=== PATIENT | female | born 1970 | race Caucasian/White ===

== ENCOUNTER 2019-07-04 20:13 | Emergency (ER) | payer BC, OTHER ==
[2019-07-04 20:42] LABS: #Basophils 0.1 thou/uL (0.0-0.2); #Eosinphils 0.1 thou/uL (0.0-0.7); #Lymphocytes 1.3 thou/uL (1.20-3.40); #Monocytes 0.5 thou/uL (0.11-0.59); %Basophils 0.5 % (0.0-1.0); %Eosinophils 0.8 % (0.0-10.0); %Lymphocytes 9.4 % (21.0-51.0); %Monocytes 3.7 % (0.0-10.0); %Neutrophils 85.6 % (42.0-75.0); Hemoglobin 14.3 g/dL (12.0-16.0); Mean Corpuscular HGB CONC 32.5 g/dL (32.0-36.0); Mean Corpuscular Hemoglobin 28.8 pg (27.0-31.0); Mean Corpuscular Volume 88.5 fL (78.0-98.0); Mean Platelet Volume 8.3 fL (7.4-10.4); Platelet Count 237 thou/uL (130-400); RBC Distribution Width 12.9 % (11.5-14.5); Red Blood Cell (RBC) Count 4.96 mill/uL (4.20-5.40)
[2019-07-04 21:01] LABS: ALT (SGPT) 17 U/L (8-55); AST (SGOT) 17 U/L (5-34); Albumin 4.3 g/dL (3.5-5.0); Alkaline Phosphatase 52 U/L (40-110); Anion Gap 12 mmol/L (10-20); BUN (Urea Nitrogen) 11 mg/dL (7.0-18.7); Bilirubin, Total 0.6 mg/dL (0.2-1.2); Calc. Creatinine Clearance 0 mL/min (70-130); Carbon Dioxide 25 mmol/L (22-29); Chloride 103 mmol/L (98-107); Estimated GFR-MDRD 75; Globulin 3.1 g/dL (2.4-3.5); Glucose 112 mg/dL (70-105); Potassium 3.3 mmol/L (3.5-5.1); Protein, Total 7.4 g/dL (6.0-8.3); Sodium 137 mmol/L (136-145)
--- NOTE | 2019-07-04 21:01 | RAD ---
PORTABLE CHEST ONE VIEW: 07/04/19 at 8:43 p.m. HISTORY: Chest pain. FINDINGS: The heart size is normal. The lungs are well expanded without lobar consolidation, pneumothoraces, or pleural effusions. IMPRESSION: No acute process. POS: [id number]
[2019-07-04] MEDS ORDERED: Aspirin Chewable 81 MG TAB ONE (22:00)
[2019-07-05 11:57] LABS: SARS-CoV-2 MS2 Positive; SARS-CoV-2 N Gene Negative; SARS-CoV-2 S Gene Negative; SARS-CoV-2 orf1ab Negative
== END 2019-07-04 22:24 | disposition home or self-care (01) ==
LOC: ERS 20:13
DX: R07.89 Other chest pain (principal); Z20.828 Contact with and (suspected) exposure to other viral communicable diseases; I10 Essential (primary) hypertension; K21.9 Gastro-esophageal reflux disease without esophagitis; F41.9 Anxiety disorder, unspecified; F32.9 Major depressive disorder, single episode, unspecified; Z79.01 Long term (current) use of anticoagulants; Z79.899 Other long term (current) drug therapy
CPT/HCPCS: 36415; 71045; 80053; 83880; 84484; 85025; 87635; 93005; U0003

== ENCOUNTER 2021-11-06 19:34 | Inpatient (IN) | payer BC, OTHER ==
[2021-11-06 21:59] LABS: #Eosinphils 0.2 thou/uL (0.0-0.7); #Lymphocytes 3.2 thou/uL (1.20-3.40); #Monocytes 0.4 thou/uL (0.11-0.59); #Neutrophils 4.4 thou/uL (1.40-6.50); %Basophils 0.5 % (0.0-1.0); %Eosinophils 2.3 % (0.0-10.0); %Lymphocytes 39.3 % (21.0-51.0); %Monocytes 5.3 % (0.0-10.0); %Neutrophils 52.7 % (42.0-75.0); Hemoglobin 13.4 g/dL (12.0-16.0); Mean Corpuscular HGB CONC 33.3 g/dL (32.0-36.0); Mean Corpuscular Hemoglobin 28.3 pg (27.0-31.0); Mean Corpuscular Volume 85.1 fL (78.0-98.0); Mean Platelet Volume 8.1 fL (7.4-10.4); Platelet Count 294 thou/uL (130-400); RBC Distribution Width 14.1 % (11.5-14.5); Red Blood Cell (RBC) Count 4.75 mill/uL (4.20-5.40); White Blood Cell (WBC) Count 8.3 thou/uL (4.8-10.8)
[2021-11-06] MEDS ORDERED: hydrALAZINE 20 MG/ML VIAL ONE (22:02)
[2021-11-06] MEDS ORDERED: Aspirin 325 MG TAB ONE (22:02)
[2021-11-06 22:06] LABS: INR-International Normal Ratio 0.9; PTT 25.9 sec (22.9-36.1); Prothrombin Time 12.6 sec (12.0-14.7)
[2021-11-06 22:20] LABS: ALT (SGPT) 20 U/L (8-55); AST (SGOT) 17 U/L (5-34); Alkaline Phosphatase 37 U/L (40-110); Anion Gap 16 mmol/L (10-20); BUN (Urea Nitrogen) 11 mg/dL (7.0-18.7); Bilirubin, Total 0.4 mg/dL (0.2-1.2); Calc. Creatinine Clearance 0 mL/min (70-130); Carbon Dioxide 21 mmol/L (22-29); Chloride 106 mmol/L (98-107); Estimated GFR 99; Globulin 2.7 g/dL (2.4-3.5); Glucose 98 mg/dL (70-105); Lipase 30 U/L (8-78); Potassium 3.8 mmol/L (3.5-5.1); Protein, Total 6.7 g/dL (6.0-8.3); Sodium 139 mmol/L (136-145)
[2021-11-07] MEDS ORDERED: Ondansetron ODT 4 MG TAB SL PRN (01:00)
[2021-11-07] MEDS ORDERED: Ondansetron PF 4 MG/2 ML Vial IVP PRN (01:00)
[2021-11-07 01:45] VITALS: BMI 52.2
[2021-11-07] MEDS ORDERED: Famotidine 20 MG TAB PO SCH (04:00)
[2021-11-07] MEDS ORDERED: Albuterol Sulfate 2.5 mg/3 ml Neb NEB PRN (04:15)
[2021-11-07 05:12] LABS: #Eosinphils 0.2 thou/uL (0.0-0.7); #Lymphocytes 3.1 thou/uL (1.20-3.40); #Monocytes 0.5 thou/uL (0.11-0.59); #Neutrophils 3.5 thou/uL (1.40-6.50); %Basophils 0.3 % (0.0-1.0); %Eosinophils 2.9 % (0.0-10.0); %Lymphocytes 42.7 % (21.0-51.0); %Monocytes 6.2 % (0.0-10.0); %Neutrophils 47.9 % (42.0-75.0); Hemoglobin 12.2 g/dL (12.0-16.0); Mean Corpuscular HGB CONC 32.4 g/dL (32.0-36.0); Mean Corpuscular Hemoglobin 27.8 pg (27.0-31.0); Mean Corpuscular Volume 85.8 fL (78.0-98.0); Mean Platelet Volume 8.2 fL (7.4-10.4); Platelet Count 271 thou/uL (130-400); RBC Distribution Width 13.7 % (11.5-14.5); Red Blood Cell (RBC) Count 4.37 mill/uL (4.20-5.40); White Blood Cell (WBC) Count 7.2 thou/uL (4.8-10.8)
[2021-11-07 05:31] LABS: Anion Gap 13 mmol/L (10-20); BUN (Urea Nitrogen) 8 mg/dL (7.0-18.7); Calc. Creatinine Clearance 227 mL/min (70-130); Calcium 8.7 mg/dL (7.8-10.44); Carbon Dioxide 23 mmol/L (22-29); Cardiac Risk 4.1 (Less than 4.5); Chloride 105 mmol/L (98-107); Cholesterol 149 mg/dl (< 200 Desired); Estimated GFR 104; Glucose 101 mg/dL (70-105); HDL Cholesterol 36 mg/dL (>60 Neg Risk); LDL Cholesterol, Calculated 91 mg/dL; Potassium 3.3 mmol/L (3.5-5.1); Sodium 138 mmol/L (136-145); Triglycerides 112 mg/dL (Less than 150)
[2021-11-07] MEDS ORDERED: Potassium Chloride 20 MEQ TAB PO SCH (08:00)
[2021-11-07] MEDS: Acetaminophen 325 MG TAB PO PRN ×2 (09:35→20:19)
[2021-11-07] MEDS: Lisinopril 10 MG TAB PO SCH (09:35)
[2021-11-07] MEDS: Aspirin 81 mg Enteric Coated Tablet PO SCH (09:36)
[2021-11-07] MEDS: Enoxaparin Sodium 40 MG/0.4 ML SYRINGE SC SCH (09:36)
[2021-11-07] MEDS ORDERED: hydrALAZINE 20 MG/ML VIAL SLOW IVP PRN (12:31)
[2021-11-08 05:25] LABS: #Eosinphils 0.2 thou/uL (0.0-0.7); #Lymphocytes 2.8 thou/uL (1.20-3.40); #Monocytes 0.7 thou/uL (0.11-0.59); #Neutrophils 2.9 thou/uL (1.40-6.50); %Basophils 0.1 % (0.0-1.0); %Eosinophils 3.4 % (0.0-10.0); %Lymphocytes 42.5 % (21.0-51.0); %Neutrophils 44.1 % (42.0-75.0); Hemoglobin 12.5 g/dL (12.0-16.0); Mean Corpuscular HGB CONC 31.6 g/dL (32.0-36.0); Mean Corpuscular Hemoglobin 27.3 pg (27.0-31.0); Mean Corpuscular Volume 86.4 fL (78.0-98.0); Mean Platelet Volume 8.4 fL (7.4-10.4); Platelet Count 261 thou/uL (130-400); RBC Distribution Width 14.2 % (11.5-14.5); Red Blood Cell (RBC) Count 4.59 mill/uL (4.20-5.40); White Blood Cell (WBC) Count 6.6 thou/uL (4.8-10.8)
[2021-11-08 05:48] LABS: Anion Gap 13 mmol/L (10-20); BUN (Urea Nitrogen) 9 mg/dL (7.0-18.7); Calc. Creatinine Clearance 227 mL/min (70-130); Calcium 8.6 mg/dL (7.8-10.44); Carbon Dioxide 22 mmol/L (22-29); Cardiac Risk 4.3 (Less than 4.5); Chloride 107 mmol/L (98-107); Cholesterol 160 mg/dl (< 200 Desired); Estimated GFR 104; Glucose 105 mg/dL (70-105); HDL Cholesterol 37 mg/dL (>60 Neg Risk); LDL Cholesterol, Calculated 96 mg/dL; Potassium 4.4 mmol/L (3.5-5.1); Sodium 138 mmol/L (136-145); Triglycerides 137 mg/dL (Less than 150)
[2021-11-08] MEDS: Lisinopril 10 MG TAB PO SCH (08:23)
[2021-11-08] MEDS: Aspirin 81 mg Enteric Coated Tablet PO SCH (08:23)
[2021-11-08] MEDS: Enoxaparin Sodium 40 MG/0.4 ML SYRINGE SC SCH (08:23)
[2021-11-08] MEDS ORDERED: Gabapentin 100 MG CAP PO SCH (15:00)
[2021-11-08] MEDS: Acetaminophen 325 MG TAB PO PRN (16:17)
[2021-11-08 16:26] VITALS: BP 155/96; TEMP 97.8
[2021-11-08] MEDS ORDERED: Lisinopril 10 MG TAB PO SCH (21:00)
[2021-11-09] MEDS ORDERED: Amlodipine 5 MG TAB PO SCH (09:00)
== END 2021-11-08 18:43 | disposition home or self-care (01) | DRG 74 ==
LOC: ERS 19:34 → NEURO 23:09 → OBSVTOIN 11-07 16:58
PROVIDERS: ADMIT Internal Medicine; ATTEND Internal Medicine
DX: G57.11 Meralgia paresthetica, right lower limb (principal); Z68.43 Body mass index [BMI] 50.0-59.9, adult; I10 Essential (primary) hypertension; K21.9 Gastro-esophageal reflux disease without esophagitis; M48.061 Spinal stenosis, lumbar region without neurogenic claudication; M43.17 Spondylolisthesis, lumbosacral region; G47.33 Obstructive sleep apnea (adult) (pediatric); F41.9 Anxiety disorder, unspecified; F32.A Depression, unspecified; E66.01 Morbid (severe) obesity due to excess calories; M25.561 Pain in right knee; G89.29 Other chronic pain; M25.511 Pain in right shoulder; J45.20 Mild intermittent asthma, uncomplicated; K52.9 Noninfective gastroenteritis and colitis, unspecified; K80.20 Calculus of gallbladder without cholecystitis without obstruction; Z79.899 Other long term (current) drug therapy; Z88.2 Allergy status to sulfonamides; Z98.890 Other specified postprocedural states; Z98.51 Tubal ligation status; Z98.84 Bariatric surgery status
CPT/HCPCS: 36415; 70450; 71045; 72131; 80048; 80053; 80061; 83036; 83690; 84484; 85025; 85610; 85730; 93005; 96372; G0378; J0360; J1650

== ENCOUNTER 2022-10-23 09:59 | Outpatient (CLI) | payer OTHER | END 2022-10-23 10:00 | disposition home or self-care (01) | LOC: RAD-FRANK 09:59 | PROVIDERS: ATTEND Nurse Practitioner Family | DX: M25.562 Pain in left knee (principal) ==